=== PATIENT | female | born 1980 | race Caucasian/White ===

== ENCOUNTER 2016-11-20 11:17 | Emergency (ER) | payer SELFPAY ==
--- NOTE | 2016-11-20 14:00 | Emergency Department Report ---
ED Back Pain/Injury HPI - General Chief Complaint: Back Pain/Injury Stated Complaint: BACK PAIN Time Seen by Provider: 11/20/16 12:24 Source: patient Mode of arrival: Ambulatory Limitations: No Limitations - History of Present Illness Initial Comments: PT c/o fall 1 week ago. PT states she fell down a hill when she was outside her home. PT landed in dirt. PT states her pain worsened today. PT has not been seen since the fall MD Complaint: back pain Onset/Timin -: Sudden, week(s) Similar Symptoms Previously: No Place: home (outside ) Radiation: none Severity scale (0 -10): 6 Quality: sharp Consistency: constant Improves With: none Worsens With: movement, walking, other (palpation ) Associated Symptoms: denies: weakness, difficulty walking, difficulty urinating , incontinence, abdominal pain, nausea/vomiting - Related Data Previous Rx's Medication Instructions Recorded Last Taken Type Ibuprofen [Motrin] 600 mg PO Q8H PRN #15 tablet 11/20/16 Unknown Rx methOCARBAMOL [Robaxin TAB] 500 mg PO Q6H PRN #15 tablet 11/20/16 Unknown Rx Allergies Allergy/AdvReac Type Severity Reaction Status Date / Time No Known Allergies Allergy Unverified 11/20/16 11:39 ED Review of Systems ROS: Stated complaint: BACK PAIN Other details as noted in HPI Comment: All other systems reviewed and negative Constitutional: denies: fever Cardiovascular: denies: chest pain, syncope Gastrointestinal: denies: abdominal pain, nausea, vomiting Neurological: abnormal gait (due to back pain ). denies: weakness ED Past Medical Hx - Past Medical History Previous Medical History?: Yes Additional medical history: vaginal delivery x 2 - Surgical History Past Surgical History?: Yes Additional Surgical History: x 1, Tubaligation - Social History Smoking Status: Never Smoker Substance Use Type: Non Opiate Pain - Medications Home Medications: Home Medications Medication Instructions Recorded Confirmed Last Taken Type Ibuprofen [Motrin] 600 mg PO Q8H PRN #15 tablet 11/20/16 Unknown Rx methOCARBAMOL [Robaxin TAB] 500 mg PO Q6H PRN #15 tablet 11/20/16 Unknown Rx ED Physical Exam - General Limitations: No Limitations General appearance: alert, in no apparent distress - Head Head exam: Present: atraumatic, normocephalic, normal inspection - Eye Eye exam: Present: normal appearance, PERRL, EOMI. Absent: conjunctival injection - ENT ENT exam: Present: normal exam, normal external ear exam - Neck Neck exam: Present: normal inspection, full ROM. Absent: tenderness - Respiratory Respiratory exam: Present: normal lung sounds bilaterally. Absent: respiratory distress, chest wall tenderness - Cardiovascular Cardiovascular Exam: Present: regular rate, normal rhythm, normal heart sounds - GI/Abdominal GI/Abdominal exam: Present: soft. Absent: tenderness - Extremities Exam Extremities exam: Present: normal inspection, full ROM - Back Exam Back exam: Present: normal inspection, full ROM, tenderness (to L spine ), vertebral tenderness. Absent: CVA tenderness (R), CVA tenderness (L), muscle spasm, paraspinal tenderness - Neurological Exam Neurological exam: Present: alert, oriented X3 - Psychiatric Psychiatric exam: Present: normal affect, normal mood - Skin Skin exam: Present: warm, dry, intact, normal color ED Course Vital Signs 11/20/16 11:39 Temperature 99.1 F Pulse Rate 70 Respiratory 20 Rate Blood Pressure 155/97 O2 Sat by Pulse 100 Oximetry - Reevaluation(s) Reevaluation #1: 11/20/16 14:03 Pt's lmp 10-07-16. Will obtain test prior to imaging and medication. PT aware of plan of care. Reevaluation #2: 11/20/16 18:59 PT states pain decreased sp Toradol. PT aware of xr results and lab results. PT has no questions at this time. - Pulse Oximetry Interpretation Digit-Finger Initial Pulse Oximetry Readin Actions Taken: none ED Medical Decision Making - Radiology Data Radiology results: report reviewed XR L spine - NAP - Differential Diagnosis fall, back strain, fracture, Critical Care Time: No Critical care attestation.: If time is entered above; I have spent that time in minutes in the direct care of this critically ill patient, excluding procedure time. ED Disposition Clinical Impression: Fall Qualifiers: Encounter type: initial encounter Qualified Code(s): W19.XXXA - Unspecified fall, initial encounter Acute low back pain Qualifiers: Back pain laterality: midline Sciatica presence: without sciatica Qualified Code(s): M54.5 - Low back pain Disposition: TO HOME OR SELFCARE Is pt being admited?: No Does the pt Need Aspirin: No Condition: Stable Instructions: Low Back Strain (ED), Acute Low Back Pain (ED) Additional Instructions: recheck bp with PCP in 3-5 days No driving or ETOH after taking Ultram or Robaxin Prescriptions: Ibuprofen [Motrin] 600 mg PO Q8H PRN #15 tablet PRN Reason: Pain methOCARBAMOL [Robaxin TAB] 500 mg PO Q6H PRN #15 tablet PRN Reason: Muscle Spasm Referrals: PRIMARY CARE, [Primary Care Provider] - 3-5 Days MALI WOODY MD [Staff Physician] - 3-5 Days BRITT ROSARIO MD [Staff Physician] - 3-5 Days [facility] [Outside] - 3-5 Days [facility] [Outside] - 3-5 Days Time of Disposition: 19:00
--- NOTE | 2016-11-20 15:21 | XRay Report ---
Lumbar spine 3 views: History: Status post fall, pain. Findings: Normal height of vertebral bodies and intervertebral disc are normal articular surfaces. No fracture. No paravertebral mass. Impression: No evidence of acute fracture.
[2016-11-20 17:46] LABS: Bilirubin,Urine NEG (Negative); Blood,Urine SM (Negative); Ketones,Urine NEG (Negative); Leukocyte Esterase,Urine NEG (Negative); Mucus,Urine FEW /HPF; Nitrite,Urine NEG (Negative); Protein,Urine <15 mg/dL mg/dL (Negative); Urobilinogen,Urine < 2.0 mg/dL (<2.0)
[2016-11-20] MEDS ORDERED: TORADOL IM ONE (17:59)
[2016-11-20 19:03] VITALS: BP 144/74
== END 2016-11-20 19:28 | disposition home or self-care (01) ==
LOC: ED 11:17
DX: M54.5 Low back pain (principal); Z98.51 Tubal ligation status; W17.89XA Other fall from one level to another, initial encounter; Y93.89 Activity, other specified; Y92.89 Other specified places as the place of occurrence of the external cause; Y99.8 Other external cause status
CPT/HCPCS: 72100; 81001; 81025; 96372; 99283; J1885